=== PATIENT | male | born 1990 | race Hispanic/Latino ===

== ENCOUNTER 2023-08-12 23:17 | Emergency (ER) | payer OTHER ==
[2023-08-13] MEDS ORDERED: diphenhydrAMINE 50 MG CAP ONE (00:01)
[2023-08-13] MEDS ORDERED: Ibuprofen 800 MG TAB ONE (00:01)
[2023-08-13] MEDS ORDERED: Boostrix 0.5 ML (Tdap) VIAL (>/=7 yrs of age) ONE (00:28)
== END 2023-08-13 00:39 ==
LOC: ERS 23:17
DX: T63.2X1A Toxic effect of venom of scorpion, accidental (unintentional), initial encounter (principal); R20.2 Paresthesia of skin; Z23 Encounter for immunization
CPT/HCPCS: 71045; 90471; 90715; 93005